=== PATIENT | male | born 1995 | race Caucasian/White ===

== ENCOUNTER 2021-10-11 20:59 | Emergency (ER) | payer SELFPAY ==
[2021-10-11 22:03] LABS: CORONAVIRUS COVID-19 NAA NEGATIVE (NEGATIVE)
--- NOTE | 2021-10-11 22:08 | EDM.PDOC ---
ED HPI GENERAL MEDICAL PROBLEM - General Chief Complaint: Respiratory Problem Stated Complaint: SOB/HEART RACING/POSS ALLERGIC REACTION Time Seen by Provider: 10/11/21 21:08 Source of Information: Reports: Patient, Family () History Limitations: Reports: No Limitations - History of Present Illness INITIAL COMMENTS - FREE TEXT/NARRATIVE: Mr. Alejo is a very pleasant 26-year-old gentleman who now presents the ED stating that he suffered an "asthma attack" including symptoms of chest tightness, throat tightness, heart racing, and dyspnea, that began around 20:00 tonight, after he took a shower and a bathroom that has black mold. He took 2 inhalations from his albuterol MDI, as well as an oral Benadryl, and his symptoms subsequently resolved. On close questioning, however, the patient acknowledges that he did not shake his MDI for more than a few shakes, and he did not use a spacer chamber. At no time did the patient develop urticaria or angioedema. The patient reports that he and his moved into a house, and that he subsequently symptoms like those above, and that they subsequently found that there was black mold behind the singleton of their bathroom. He has tried to remove much of it, but every time he goes into his bathroom, he still gets the same symptoms. Of interest, the patient's gets similar symptoms. The patient believes that he is allergic to black mold, and states that he was seen by an a [employer] Operator when he was a child, who performed some sort of allergy testing, which confirmed that he is allergic to black mold. Patient also states that he has a history of asthma, also diagnosed as a child, although he has never undergone a pulmonary function test. Of additional interest, however, the patient works construction, and used to smoke, but does not get symptomatic while on the job or with smoking. He states that he owns both a peak flow meter and spacer chamber, but that he has not used either in years. After the patient and I talked for a while, he acknowledged that he has been feeling significantly anxious and stressed, particularly over the past couple of years. He has trouble sleeping because of his stress. At triage, the patient was found to be hemodynamically stable, afebrile, saturating 99% on room air. He appears to be somewhat anxious, although in no acute distress. Prior to the onset of tonight's symptoms, the patient denies having a recent fever, chills, sore throat, ear pain, nasal or sinus congestion, cough, dyspnea, chest pain, palpitations, nausea, vomiting, constipation, diarrhea, abdominal pain, urinary symptoms, recent weight gain or weight loss, recent bloody bowel movements or black bowel movements, recent joint aches, headaches, or rashes. The patient's PCP is Dr. Zane Bell. He has not received a COVID vaccination, nor an influenza vaccination this season. - Related Data Allergies Allergy/AdvReac Type Severity Reaction Status Date / Time azithromycin [From Zithromax] Allergy Cannot Verified 10/11/21 21:19 Remember Home Meds: Home Meds Albuterol [Ventolin HFA] 1 puff INH ASDIRECTED 10/11/21 [History] Past Medical History Respiratory History: Reports: Asthma (suspected, not PFT-tested) - Past Surgical History Male Surgical History: Reports: Circumcision Social & Family History - Tobacco Use Tobacco Use Status *Q: Former Tobacco User Years of Tobacco use: 7 Packs/Tins Daily: 0.1 Month/Year Tobacco Last Used: Quit 2020 Tobacco Use Comment: Started smoking 2012 - Caffeine Use Caffeine Use: Reports: Coffee - Alcohol Use Alcohol Use History: Yes Alcohol Use Frequency: Socially - Recreational Drug Use Recreational Drug Use: No - Living Situation & Occupation Living situation: Reports: , Single Occupation: Employed (Construction) ED ROS GENERAL - Review of Systems Review Of Systems: Comprehensive ROS is negative, except as noted in HPI. ED EXAM, GENERAL - Physical Exam Exam: See Below Exam Limited By: No Limitations General Appearance: Alert, WD/WN, No Apparent Distress Eye Exam: Bilateral Eye: EOMI, Normal Inspection Ears: Normal External Exam, Hearing Grossly Normal Nose: Normal Inspection Throat/Mouth: Normal Inspection, Normal Lips, Normal Voice, No Airway Compromise Head: Atraumatic, Normocephalic Neck: Normal Inspection, Full Range of Motion Respiratory/Chest: No Respiratory Distress, Lungs Clear, Normal Breath Sounds, No Accessory Muscle Use. No: Decreased Breath Sounds, Crackles, Rhonchi, Wheezing, Stridor, Prolonged Expiration Cardiovascular: Normal Peripheral Pulses, Regular Rate, Rhythm, No Edema, No Gallop, No JVD, No Murmur, No Rub Peripheral Pulses: 3+: Radial (L), Radial (R) GI/Abdominal: Normal Bowel Sounds, Soft, Non-Tender, No Organomegaly, No Distention, No Abnormal Bruit, No Mass Back Exam: Normal Inspection, Full Range of Motion, NT Extremities: Normal Inspection, Normal Range of Motion, No Pedal Edema, Normal Capillary Refill Neurological: Alert, Oriented, Normal Cognition, No Motor/Sensory Deficits Psychiatric: Anxious Skin Exam: Warm, Dry, Intact, Normal Color, No Rash Course - Vital Signs Last Recorded V/S: Last Vital Signs Temp 36.8 C 10/11/21 21:17 Pulse 90 10/11/21 21:17 Resp 15 10/11/21 21:17 BP 130/70 10/11/21 21:17 Pulse Ox 99 10/11/21 21:17 - Orders/Labs/Meds Orders: Active Orders 24 hr Category Date Time Status COVID-19/FLU A+B/RSV [[facility]] Stat Lab 10/11/21 21:10 Received - Re-Assessments/Exams Free Text/Narrative Re-Assessment/Exam: 10/11/21 21:59 The patient, his , and I talked at great length. With respect to his reaction to the presence of black mold in his bathroom, it is possible that he is allergic to black mold, but the symptoms that he experienced tonight were not due to a reaction to black mold, nor was he suffering from an asthma exacerbation. He states that he took 2 puffs of his albuterol MDI and a Benadryl, but he did not shake the unit, and did not use a space chamber, therefore virtually no medication actually got into his lungs, yet his symptoms resolved prior to his arrival to the ED nevertheless. Whether or not the patient has an allergy to black mold, I suspect that his symptoms tonight were due to anxiety, and the patient essentially confirmed that by noting that he has been feeling more more stressed and anxious over the past 2 years. He is having difficulty sleeping. Going forward, I'm recommending the followin. That he have the black mold in his home professionally removed. 2. That he reacquire his peak flow meter and spacer chamber, and learn how to use the peak flow meter, and know his normal values. 3. That he check his peak flow 2 or 3 times a week, even if he is feeling well. 4. That if he redevelops shortness of breath, that he check his peak flow meter and only take albuterol if he is in the yellow or red zone. 5. That any time that he uses his albuterol MDI, that he use his spacer chamber. 6. That he follow-up with the Director Design Dr. Val Cazares in [place]. If possible, he should require the information from allergy testing that he had as a child, and take that to Dr. Cazares. She can then determine if he has a genuine allergy to black mold or not. 7. Dr. Cazares can also order a pulmonary function test to determine if the patient has asthma or not. 8. That the patient follow-up with his PCP, Dr. Zane Bell, to discuss treatment options for anxiety. Both the patient and his are in agreement. He declined an offer to have the respiratory therapist go over a peak flow meter to teach him how to use it. He stated that he remembers how to use it, and will begin using it again. Departure - Departure Time of Disposition: 22:00 Disposition: Home, Self-Care 01 Condition: Good Clinical Impression: Hyperventilation syndrome - Discharge Information *PRESCRIPTION DRUG MONITORING PROGRAM REVIEWED*: Not Applicable *COPY OF PRESCRIPTION DRUG MONITORING REPORT IN PATIENT SARAH: Not Applicable Referrals: Zane Bell MD [Primary Care Provider] - Val Cazares MD [Ordering Only Provider] - Additional Instructions: You were seen in the emergency room for throat and chest tightness, heart racing, and shortness of breath after being exposed to black mold in your bathroom. While we cannot say whether or not you are truly allergic to black mold, we can say that the symptoms that you experienced tonight were not due to either an allergic reaction or an asthma exacerbation. We recommend that you have a professional clean all of the black mold in your home, so that it is no longer an issue for you. Going forward, we recommend that you reacquire your peak flow meter and learn how to use it. Get to know your normal values. We then recommend that you check your peak flow 2 or 3 times a week, even if you are feeling well. If you are feeling short of breath but your peak flow is in the green zone, DO NOT take albuterol, since your shortness of breath is not due to an asthma exacerbation. If you are feeling short of breath and your peak flow is in the yellow or red zone, you should take albuterol, using your spacer chamber. You may repeat the albuterol as often as necessary to get relief, but if you require albuterol more often than every 4 hours, you need to be seen by a doctor. If you are feeling well but your peak flow is in the yellow or red zone, we recommend that you talk to your doctor, as this is an indication that you may suffer an asthma exacerbation within the next 2 weeks. We recommend that you follow-up with the Director Design Dr. Val Cazares, in [place], at the next available appointment. If possible, see if you can acquire your previous allergists notes and work-up information, and take that information to Dr. Cazares. You can talk to Dr. Cazares about getting a pulmonary function test (PFT) to determine if you actually have asthma or not. If you feel that your anxiety symptoms are causing enough troubles in your life, we recommend you follow-up with your PCP, Dr. Zane Bell, to discuss treatment options for anxiety. There are many. If any other problems, please do not hesitate to return to the ER. Sepsis Event Note (ED) - Focused Exam Vital Signs: Vital Signs Temp Pulse Resp BP Pulse Ox 10/11/21 21:17 36.8 C 90 15 130/70 99 - My Orders Last 24 Hours: My Active Orders 10/11/21 21:10 COVID-19/FLU A+B/RSV [[facility]] Stat - Assessment/Plan Last 24 Hours: My Active Orders 10/11/21 21:10 COVID-19/FLU A+B/RSV [[facility]LEC] Stat
== END 2021-10-11 22:20 | disposition home or self-care (01) ==
LOC: JD.ED 20:59
DX: F45.8 Other somatoform disorders (principal); Z87.891 Personal history of nicotine dependence; Z88.1 Allergy status to other antibiotic agents; Z20.822 Contact with and (suspected) exposure to COVID-19
CPT/HCPCS: 0241U; 99284

== ENCOUNTER 2024-03-25 23:11 | Emergency (ER) | payer BC ==
[2024-03-26 00:01] LABS: BASOPHILS ABSOLUTE AUTO 0.1 K/mm3 (0.0-0.2); BASOPHILS PERCENT AUTO 0.8 % (0.0-1.0); EOSINOPHILS ABSOLUTE AUTO 0.3 K/mm3 (0.0-0.4); EOSINOPHILS PERCENT AUTO 3.3 % (0.0-6.0); HEMATOCRIT 41.3 % (42.0-52.0); HEMOGLOBIN 13.7 gm/dl (14.0-18.0); IMMATURE GRAN ABSOLUTE AUTO 0.03 K/mm3 (0.00-0.05); IMMATURE GRAN PERCENT AUTO 0.3 % (0.0-0.4); LYMPHOCYTES ABSOLUTE AUTO 3.2 K/mm3 (1.0-4.8); LYMPHOCYTES PERCENT AUTO 32.9 % (24.0-44.0); MEAN CORPUSCULAR HEMOGLOBIN 30.2 pg (28.0-32.0); MEAN CORPUSCULAR HGB CONC 33.2 g/dl (32.0-36.0); MEAN PLATELET VOLUME 10.3 fl (9.4-12.4); MONOCYTES ABSOLUTE AUTO 0.7 K/mm3 (0.0-0.8); MONOCYTES PERCENT AUTO 7.3 % (0.0-8.0); NEUTROPHILS ABSOLUTE AUTO 5.4 K/mm3 (1.8-7.7); NEUTROPHILS PERCENT AUTO 55.4 % (41.0-71.0); PLATELET COUNT,PLT 228 K/mm3 (150-400); RED BLOOD CELL COUNT 4.54 M/mm3 (4.52-5.90)
[2024-03-26 00:02] LABS: APPEARANCE,URINE CLEAR (Clear); BILIRUBIN,URINE NEGATIVE (Negative); COLOR,URINE YELLOW (Yellow); GLUCOSE,URINE NEGATIVE (Negative); KETONES,URINE NEGATIVE (Negative); LEUKOCYTE ESTERASE,URINE NEGATIVE (Negative); NITRITE,URINE NEGATIVE (Negative); OCCULT BLOOD,URINE NEGATIVE (Negative); PROTEIN,URINE NEGATIVE (Negative); UROBILINOGEN,URINE 0.2 (0.2-1.0)
[2024-03-26 00:40] LABS: A/G RATIO 1.2 (1-2); ALANINE AMINOTRANSFERASE,ALT 25 U/L (16-63); ALBUMIN 3.9 g/dl (3.4-5.0); ALKALINE PHOSPHATASE 104 U/L (46-116); ANION GAP 14.1 (5-15); ASPARTATE AMNIOTRANSFERASE,AST 17 U/L (15-37); BILIRUBIN TOTAL 0.3 mg/dL (0.2-1.0); BLOOD UREA NITROGEN,BUN 22 mg/dL (7-18); CALCIUM 8.7 mg/dL (8.5-10.1); CARBON DIOXIDE,CO2 27 mEq/L (21-32); CHLORIDE,CL 103 mEq/L (98-107); CREATININE 1.1 mg/dL (0.7-1.3); EST CRCL DRUG DOSING (CG) 106.48 mL/min; ESTIMATED GFR 94 mL/min (>60); GLUCOSE RANDOM 115 mg/dL (70-99); MAGNESIUM 2.1 mg/dL (1.8-2.4); POTASSIUM,K 4.1 mEq/L (3.5-5.1); PROTEIN TOTAL,TP 7.1 g/dl (6.4-8.2); SODIUM,NA 140 mEq/L (136-145)
[2024-03-26 00:45] LABS: TROPONIN I HIGH SENSITIVITY < 4 pg/mL (<=76)
== END 2024-03-26 01:26 | disposition home or self-care (01) ==
LOC: JD.ED 23:11
DX: M94.0 Chondrocostal junction syndrome [Tietze] (principal); J45.909 Unspecified asthma, uncomplicated; Z79.899 Other long term (current) drug therapy; Z88.1 Allergy status to other antibiotic agents
CPT/HCPCS: 36415; 80053; 81003; 83735; 84484; 85025; 93005; 99285